=== PATIENT | male | born 1955 ===

== ENCOUNTER → 2018-03-11 | Outpatient (CLI) | payer OTHER ==
[~2018-03-11] MED LIST: SIMVASTATIN5 MG
== END | disposition home or self-care (01) ==
LOC: RAD 12:23
DX: R06.02 Shortness of breath (principal); R05 Cough; R06.83 Snoring; E11.9 Type 2 diabetes mellitus without complications; E66.9 Obesity, unspecified; E44.1 Mild protein-calorie malnutrition; Z77.22 Contact with and (suspected) exposure to environmental tobacco smoke (acute) (chronic); G47.30 Sleep apnea, unspecified

== ENCOUNTER 2018-09-10 11:10 | Outpatient (CLI) | payer OTHER | END 2018-09-10 14:49 | disposition home or self-care (01) | LOC: TOM 11:10 | DX: J32.0 Chronic maxillary sinusitis (principal) ==

== ENCOUNTER → 2019-12-18 06:32 | Outpatient (CLI) | payer OTHER | END | disposition home or self-care (01) | LOC: LAB 06:32 | DX: R00.2 Palpitations (principal); I11.9 Hypertensive heart disease without heart failure; R06.09 Other forms of dyspnea; E55.9 Vitamin D deficiency, unspecified; Z12.11 Encounter for screening for malignant neoplasm of colon; M06.4 Inflammatory polyarthropathy; I70.0 Atherosclerosis of aorta; G44.019 Episodic cluster headache, not intractable ==